=== PATIENT | female | born 1985 | race American Indian/Alaskan Native ===

== ENCOUNTER 2020-07-09 22:31 | Emergency (ER) | payer SELFPAY ==
[2020-07-09 22:41] VITALS: BP 122/79
== END 2020-07-10 00:48 | disposition left against medical advice (07) ==
LOC: ED 22:31
DX: Z04.1 Encounter for examination and observation following transport accident (principal); Z53.21 Procedure and treatment not carried out due to patient leaving prior to being seen by health care provider